=== PATIENT | female | born 2000 | race Caucasian/White ===

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

== ENCOUNTER 2022-04-14 15:37 | Emergency (ER) | payer BC ==
[2022-04-14] MEDS ORDERED: methylPREDNISolone Sod Succ/PF 125 MG/2 ML VIAL ONE (15:52)
[2022-04-14] MEDS ORDERED: diphenhydrAMINE 50 MG/ML VIAL ONE (15:52)
[2022-04-14] MEDS ORDERED: Famotidine/PF 20 mg/2ml Vial ONE (15:52)
== END 2022-04-14 17:56 | disposition home or self-care (01) ==
LOC: ERS 15:37
DX: R21 Rash and other nonspecific skin eruption (principal); R11.0 Nausea; R68.83 Chills (without fever); R05.9 Cough, unspecified; T42.6X5A Adverse effect of other antiepileptic and sedative-hypnotic drugs, initial encounter
CPT/HCPCS: 96374; 96375; J1200; J2930; S0028

== ENCOUNTER 2022-07-16 14:23 | Emergency (ER) | payer BC ==
[2022-07-16 15:48] LABS: #Eosinphils 0.2 thou/uL (0.0-0.7); #Lymphocytes 1.5 thou/uL (1.20-3.40); #Monocytes 0.3 thou/uL (0.11-0.59); #Neutrophils 3.2 thou/uL (1.40-6.50); %Basophils 0.7 % (0.0-1.0); %Eosinophils 3.8 % (0.0-10.0); %Lymphocytes 28.6 % (28.0-48.0); %Monocytes 6.3 % (0.0-4.0); %Neutrophils 60.6 % (31.0-61.0); Hemoglobin 13.4 g/dL (12.0-16.0); Mean Corpuscular HGB CONC 35.9 g/dL (32.0-36.0); Mean Corpuscular Hemoglobin 32.9 pg (25.0-35.0); Mean Corpuscular Volume 91.6 fl (78.0-98.0); Mean Platelet Volume 8.7 fL (7.4-10.4); Platelet Count 188 10x3/uL (130-400); RBC Distribution Width 11.8 % (11.5-14.5); Red Blood Cell (RBC) Count 4.08 mill/uL (4.00-5.20); White Blood Cell (WBC) Count 5.3 10x3/uL (4.8-10.8)
[2022-07-16 16:09] LABS: ALT (SGPT) 11 U/L (8-55); AST (SGOT) 14 U/L (5-30); Albumin 4.1 g/dL (3.5-5.0); Alkaline Phosphatase 55 U/L (40-100); Anion Gap 12 mmol/L (10-20); BUN (Urea Nitrogen) 7 mg/dL (8.4-21.0); Bilirubin, Total 0.4 mg/dL (0.2-1.2); Calc. Creatinine Clearance 0 mL/min (70-130); Calcium 9.1 mg/dL (7.8-10.44); Carbon Dioxide 23 mmol/L (22-29); Chloride 108 mmol/L (98-107); Estimated GFR 130; Globulin 2.5 g/dL (2.4-3.5); Glucose 103 mg/dL (70-105); Potassium 3.8 mmol/L (3.5-5.1); Protein, Total 6.6 g/dL (6.0-8.3); Sodium 139 mmol/L (136-145)
== END 2022-07-16 17:30 | disposition home or self-care (01) ==
LOC: ERS 14:23
DX: R56.9 Unspecified convulsions (principal); W19.XXXA Unspecified fall, initial encounter
CPT/HCPCS: 36415; 70450; 80053; 85025